=== PATIENT | female | born 1965 | race Caucasian/White ===

== ENCOUNTER 2017-07-15 09:29 | Day surgery (SDC) | payer BC ==
[~2017-07-15] VITALS: Ht 170.2 cm; Wt 65.8 kg
[~2017-07-15 09:29] MED LIST: CHEWABLE-VITE1 EACH PO; VITAMIN D2000 UNIT PO; ZANTAC300 MG PO
[2017-07-15 10:01] VITALS: BP 129/75
[2017-07-15 16:00] VITALS: BP 97/57
[2017-07-15 19:50] VITALS: BP 94/57
[2017-07-16 00:41] VITALS: BP 98/54
[2017-07-16 03:18] VITALS: BP 126/54
[2017-07-16 07:23] VITALS: BP 96/51
[2017-07-16 07:32] LABS: EOSINOPHIL (%) 0.4 % (0-5); HEMATOCRIT 34.2 % (36.0-46.0); IMMATURE GRANULOCYTE (%) 0.4 % (0.0-0.7); INSTRUMENT ABS NEUTROPHIL CT 6.4 K/uL; LYMPHOCYTE COUNT 2.1 K/uL (1.0-2.8); MCH 29.4 PG (29.0-34.0); MCHC 32.7 G/DL (30.0-36.0); MCV 89.8 FL (83-99); MONOCYTE (%) 7.7 % (3-12); MONOCYTE COUNT 0.7 K/uL (0-0.8); NEUTROPHIL (%) 69.1 % (45-76); NEUTROPHIL COUNT 6.4 K/uL (1.8-6.4); PLATELET COUNT 169 K/uL (156-360); RBC DIS.WIDTH-CV 13.2 % (11.8-14.6); RBC DIS.WIDTH-SD 43.4 % (39-53); RED BLOOD COUNT 3.81 M/uL (3.80-5.20); WHITE BLOOD COUNT 9.3 K/uL (4.1-10.2)
[2017-07-16 07:59] LABS: ANION GAP 7 MEQ/L (2-14); CHLORIDE 110 MEQ/L (99-109); GFR ESTIMATE (CALCULATED) > 59 mL/min/; GLUCOSE 76 mg/dL (70-99); POTASSIUM 4.2 MEQ/L (3.7-5.4); SAMPLE HEMOLYSIS CHECK 0; SAMPLE ICTERIC CHECK 0; SAMPLE LIPEMIA CHECK 0; SODIUM 142 MEQ/L (136-147); UREA NITROGEN (BUN) 8 mg/dL (9-23)
[2017-07-16 11:26] VITALS: BP 107/69
== END 2017-07-16 14:13 | disposition home or self-care (01) ==
LOC: SDC 09:29 → 2SOUTH 14:30 → 2EAST 14:30 → 2SOUTH 14:30 → ENRESERV 14:54 → 2EAST 17:03
PROVIDERS: Obstetrics & Gynecology Gynecology
DX: D25.1 Intramural leiomyoma of uterus (principal); N80.0 Endometriosis of uterus; N87.9 Dysplasia of cervix uteri, unspecified; D28.2 Benign neoplasm of uterine tubes and ligaments; N95.0 Postmenopausal bleeding; N83.201 Unspecified ovarian cyst, right side; R97.1 Elevated cancer antigen 125 [CA 125]; J45.909 Unspecified asthma, uncomplicated; K21.9 Gastro-esophageal reflux disease without esophagitis; F41.1 Generalized anxiety disorder; Z80.0 Family history of malignant neoplasm of digestive organs
CPT/HCPCS: 80048; 85025; 87086; 88108; 88305; 88307; G0378; J0131; J0690; J1100; J1170; J1644; J1885; J2250; J2405; J2765; J3010; J7030